=== PATIENT | female | born 1970 | race Caucasian/White ===

== ENCOUNTER 2017-07-24 08:28 | Day surgery (SDC) | payer OTHER ==
[~2017-07-24] VITALS: Ht 162.6 cm; Wt 70.0 kg
[~2017-07-24 08:28] MED LIST: MIRENA1 EACH IY; MOTRIN600 MG PO; SKELAXIN800 MG PO; TESSALON PERLE100 MG PO; TOLTERODINE TART4 MG PO; TYLENOL EXTRA500 MG PO
[2017-07-24 09:08] VITALS: BP 110/65
[2017-07-24 14:04] VITALS: BP 113/65
[2017-07-24 15:22] VITALS: BP 118/57
[2017-07-24 15:44] VITALS: BP 115/60
[2017-07-27 11:05] LABS: INTERNAL CONTROL VALID? YES
== END 2017-07-24 15:55 | disposition home or self-care (01) ==
LOC: SDC 08:28
PROVIDERS: Orthopaedic Surgery Hand Surgery
DX: M77.01 Medial epicondylitis, right elbow (principal); G56.21 Lesion of ulnar nerve, right upper limb; Z96.642 Presence of left artificial hip joint; Z82.49 Family history of ischemic heart disease and other diseases of the circulatory system; Z80.9 Family history of malignant neoplasm, unspecified
CPT/HCPCS: 84703; J0131; J0690; J1170; J2250; J3010; J7120; Q0175; S0020